=== PATIENT | male | born 1995 | race Caucasian/White ===

== ENCOUNTER 2018-08-23 09:18 | Emergency (ER) | payer OTHER ==
[2018-08-23] MEDS ORDERED: LIDOCAINE MPF 1%-EPI 1:200000 30 ML VIAL SUBQ STA (09:56)
[2018-08-23] MEDS ORDERED: IBUPROFEN 600 MG TABLET PO STA (09:56)
[2018-08-23] MEDS ORDERED: SULFAMETH/TRIMETH DS 800/160 MG TABLET PO STA (09:56)
[2018-08-23] MEDS ORDERED: ACETAMINOPHEN 325 MG TABLET PO STA (09:56)
--- NOTE | 2018-08-23 10:55 | ED Physician Documentation ---
PD HPI SKIN - Stated complaint Stated Complaint: LOW BACK PX - Chief complaint Chief Complaint: Wound - History obtained from History obtained from: Patient - History of Present Illness Timing - onset: How many days ago (several) Timing - duration: Days (several) Timing - details: Gradual onset, Still present Location: Other (perirectal area) Quality / character: Painful, Discolored (red), Swelling. No: Draining Associated symptoms: No: Fever, Myalgias Contributing factors: No: Recent illness Similar symptoms before: Has not had sx before Recently seen: Not recently seen Review of Systems Constitutional: denies: Fever, Chills, Myalgias Nose: denies: Rhinorrhea / runny nose, Congestion Throat: denies: Sore throat Respiratory: denies: Cough GI: denies: Abdominal Pain, Nausea, Vomiting, Diarrhea Skin: reports: Lesions PD PAST MEDICAL HISTORY - Past Medical History Past Medical History: No Cardiovascular: None Respiratory: None Neuro: None Endocrine/Autoimmune: None - Past Surgical History Past Surgical History: No - Present Medications Home Medications: Ambulatory Orders Medication Instructions Recorded Confirmed Sulfamethox/Trimeth 800/160 1 each PO BID #14 tablet 08/23/18 [Bactrim Ds 800/160] - Allergies Allergies/Adverse Reactions: Allergies Allergy/AdvReac Type Severity Reaction Status Date / Time No Known Drug Allergies Allergy Verified 08/23/18 09:24 - Social History Does the pt smoke?: No Smoking Status: Never smoker Does the pt drink ETOH?: Yes Does the pt have substance abuse?: No - Immunizations Immunizations are current?: Yes PD ED PE NORMAL - Vitals Vital signs reviewed: Yes - General General: Alert and oriented X 3, No acute distress, Well developed/nourished - Male Male : Deferred - Rectal Rectal: Other (perirectal area left with focal area of tenderness, swelling and redness with some fluctuance. ) - Derm Derm: Normal color, Warm and dry - Extremities Extremities: No tenderness to palpate, Normal ROM s pain - Neuro Neuro: Alert and oriented X 3, No motor deficit, Normal speech Results - Vitals Vitals: Vital Signs - 24 hr 08/23/18 08/23/18 09:23 11:16 Temperature 36.1 C L 37.0 C Heart Rate 110 H 115 H Respiratory 16 94 H Rate Blood Pressure 147/103 H 148/97 H O2 Saturation 95 94 Oxygen O2 Source Room air Procedures - Abscess I&D (location) left perirectal Preparation: Lidocaine 1%, With epi Incision: Incised with scalpel, Purulent drainage, Irrigated. No: Packed, Culture obtained Other: Pt tolerated well, Dressing applied, Antibiotic prescribed Departure - Departure Disposition: Home, Self Care Clinical Impression: Perirectal abscess Condition: Stable Record reviewed to determine appropriate education?: Yes Instructions: ED Abscess IandD Prescriptions: Sulfamethox/Trimeth 800/160 [Bactrim Ds 800/160] 1 each PO BID #14 tablet Comments: Warm soaks 2-3 times a day to help promote drainage from the open and abscess for the next couple of days. Ibuprofen 3 times a day. Add Tylenol if needed. Bactrim antibiotic twice daily for a week. Recheck if not improved well over the next 2-3 days. It should hurt a lot less even later today. Discharge Date/Time: 08/23/18 11:20
[2018-08-23 11:17] VITALS: BP 148/97
== END 2018-08-23 11:20 | disposition home or self-care (01) ==
LOC: ED 09:18
DX: K61.1 Rectal abscess (principal)
CPT/HCPCS: 10060; 99283; A9270